=== PATIENT | male | born 1960 | race Caucasian/White ===

== ENCOUNTER 2023-04-18 16:31 | Emergency (ER) | payer BC, SELFPAY ==
[2023-04-18 16:35] VITALS: BP 124/67; PULSE 67; RESP 18; TEMP 37.2; O2SAT 99; BMI 21.1
--- NOTE | 2023-04-18 17:23 | ED_ITS ---
Documented by User: JEAN CARLOS Nicholson 04/18/23 19:24 HPI - General Adult General Chief complaint: Weakness Stated complaint: FLUIDS NEEDED PER [facility] Time Seen by Provider: 04/18/23 16:51 Source: patient Mode of arrival: walk-in Limitations: no limitations History of Present Illness HPI narrative: patient is a 63-year-old male who presents to the emergency department for IV fluids per his [facility] oncologist. Patient is currently being treated for pancreatic cancer with metastasis to the liver. He has had ongoing diarrhea and on calling his oncologist was instructed to come to the Emergency Room for IV fluids. He denies any fevers, upper respiratory symptoms. He has not had any vomiting. He has a port to the left upper chest. He received chemotherapy last week as an infusion and went home with a pump. He should receive this every two weeks. He has chronic pain that is not worse or different today. No urinary symptoms. No medications taken prior to arrival. Related Data Home Medications Medication Instructions Recorded Confirmed acetaminophen 500 mg capsule 1,000 mg PO BID 04/18/23 04/18/23 gabapentin 100 mg capsule 100 mg PO DAILY 04/18/23 04/18/23 insulin aspart U-100 100 unit/mL 1 sliding scale dose subcut 04/18/23 04/18/23 (3 mL) subcutaneous pen (Novolog USEASDIRECTD FlexPen U-100 Insulin aspart) insulin aspart U-100 100 unit/mL 25 unit subcut QPM 04/18/23 04/18/23 (3 mL) subcutaneous pen (Novolog FlexPen U-100 Insulin aspart) [id number] 1 cap PO .COMPLEX 04/18/23 04/18/23 36,000-114,000-180,000 unit capsule,delay rel (Creon) [id number] 2 cap PO TID 04/18/23 04/18/23 36,000-114,000-180,000 unit capsule,delay rel (Creon) melatonin 1 mg tablet 5 mg PO QPM 04/18/23 04/18/23 methylphenidate HCl 5 mg tablet 5 mg PO BID 04/18/23 04/18/23 ondansetron HCl 8 mg tablet 8 mg PO Q8H PRN nausea and vomiting 04/18/23 04/18/23 oxycodone 5 mg tablet 5 mg PO Q6H PRN pain 04/18/23 04/18/23 prochlorperazine maleate 10 mg 10 mg PO Q6H PRN nausea and 04/18/23 04/18/23 tablet vomiting Allergies Allergy/AdvReac Type Severity Reaction Status Date / Time No Known Drug Allergies Allergy Verified 04/18/23 16:40 Review of Systems ROS Constitutional Denies: fever or chills Ears, nose, mouth, and throat Denies: throat pain or neck pain Respiratory Denies: shortness of breath Gastrointestinal Reports: abdominal pain and diarrhea; Denies: vomiting Musculoskeletal Denies: back pain or neck pain Integumentary/Breast Denies: rash Allergic/Immunologic Denies: hives Exam Narrative Exam Narrative: Gen.: Awake, alert, in no distress Head: Normocephalic, atraumatic ENT: Moist mucous membranes Respiratory: No respiratory distress, lungs clear bilaterally; port to the left upper chest Cardio: Regular rate and rhythm Gastrointestinal: Abdomen is soft, nondistended and nontender to palpation Extremities: Moves extremities equally Psych: Normal mood and affect Neuro: No focal neuro deficit Skin: Warm, dry, intact Constitutional Vital Signs, click to edit/add: Last Vital Signs Temp 99.0 F 04/18/23 16:35 Pulse 65 04/18/23 18:19 Resp 18 04/18/23 18:19 BP 137/66 04/18/23 18:19 Pulse Ox 100 04/18/23 18:19 O2 Del Method Room Air 04/18/23 16:35 Course Vital Signs Vital signs: Vital Signs Temperature 99.0 F 04/18/23 16:35 Pulse Rate 67 04/18/23 16:35 Respiratory Rate 18 04/18/23 16:35 Blood Pressure 124/67 04/18/23 16:35 Pulse Oximetry 99 04/18/23 16:35 Oxygen Delivery Method Room Air 04/18/23 16:35 Temperature 99.0 F 04/18/23 16:35 Pulse Rate 65 04/18/23 18:19 Respiratory Rate 18 04/18/23 18:19 Blood Pressure 137/66 04/18/23 18:19 Pulse Oximetry 100 04/18/23 18:19 Oxygen Delivery Method Room Air 04/18/23 16:35 Medical Decision Making MDM Narrative Medical decision making narrative: patient declined the need for any pain medication or nausea medication in the Emergency Room. Labs studies show mild hypokalemia which was given orally in the Emergency Room. He had no episodes of vomiting in the Emergency Room. Abdomen is soft and benign with stable vital signs. Patient has unremarkable lab studies with no evidence of severe dehydration. Reevaluated by attending physician prior to discharge. Followw closely with her oncologist and return to the Emergency Room if symptoms change or worsen. Medical Records Medical records reviewed: Yes I reviewed the patient's medical records Lab Data Lab results reviewed: Yes I reviewed the patient's lab results Labs: Lab Results 04/18/23 04/18/23 Range/Units 17:30 17:41 WBC 4.5 (4.0-11.0) 10^3/uL RBC 3.83 L (4.70-6.10) 10^6/uL Hgb 11.3 L (14.0-18.0) g/dL Hct 33.9 L (42.0-54.0) % MCV 88.5 (80.0-94.0) fL MCH 29.5 (25.9-34.0) pg MCHC 33.3 (29.9-35.2) g/dL RDW 15.2 H (11.0-15.0) % Plt Count 97 L (150-450) 10^3/uL MPV 10.2 (9.5-13.5) fL Neut % (Auto) 58.6 (43.0-75.0) % Lymph % (Auto) 26.2 (20.5-60.0) % Steele % (Auto) 8.3 (1.7-12.0) % Eos % (Auto) 6.0 (0.9-7.0) % Baso % (Auto) 0.9 (0.2-2.0) % Neut # (Auto) 2.6 (1.4-6.5) 10^3/uL Lymph # (Auto) 1.2 (1.2-3.8) 10^3/uL Steele # (Auto) 0.4 (0.3-0.8) 10^3/uL Eos # (Auto) 0.3 (0.0-0.7) 10^3/uL Baso # (Auto) 0.0 (0.0-0.1) 10^3/uL Abs Immat Gran (auto) 0.00 (0.00-0.03) 10^3/uL Imm/Tot Granulo (auto) 0.0 (0.0-0.5) % Sodium 136 (136-145) mmol/L Potassium 3.0 L (3.5-5.1) mmol/L Chloride 107 (98-107) mmol/L Carbon Dioxide 26.0 (21.0-32.0) mmol/L Anion Gap 6.0 BUN 9.0 (7.0-18.0) mg/dL Creatinine 0.47 L (0.70-1.30) mg/dL Est GFR ( Amer) >60 (>=60) Est GFR (Non-Af Amer) >60 (>=60) BUN/Creatinine Ratio 19.1 Glucose 88 (74-106) mg/dL Lactate 0.6 (0.4-2.0) mmol/L Calcium 7.9 L (8.5-10.1) mg/dL Total Bilirubin 0.3 (0.2-1.0) mg/dL AST 24 (15-37) U/L ALT 42 (16-63) U/L Alkaline Phosphatase 180 H (46-116) U/L Total Protein 5.8 L (6.4-8.2) g/dL Albumin 2.9 L (3.4-5.0) g/dL Globulin 2.9 g/dL Albumin/Globulin Ratio 1.0 Discharge Plan Discharge Chief Complaint: Weakness Clinical Impression: Diarrhea, Acute hypokalemia Patient Disposition: Home, Self-Care Time of Disposition Decision: 19:06 Condition: Good Prescriptions / Home Meds: No Action gabapentin 100 mg capsule 100 mg PO DAILY insulin aspart U-100 [Novolog FlexPen U-100 Insulin] 100 unit/mL (3 mL) insulin pen 25 unit SUBCUT QPM Creon 36,000-114,000- 180,000 unit capsule,delayed release(DR/EC) 2 cap PO TID Creon 36,000-114,000- 180,000 unit capsule,delayed release(DR/EC) 1 cap PO .COMPLEX Rx Instructions: 1 cap orally before each snack in between meals; administer with meals and/or snacks methylphenidate HCl 5 mg tablet 5 mg PO BID ondansetron HCl 8 mg tablet 8 mg PO Q8H PRN (Reason: nausea and vomiting) oxycodone 5 mg tablet 5 mg PO Q6H PRN (Reason: pain) prochlorperazine maleate 10 mg tablet 10 mg PO Q6H PRN (Reason: nausea and vomiting) melatonin 1 mg tablet 5 mg PO QPM acetaminophen 500 mg capsule 1,000 mg PO BID insulin aspart U-100 [Novolog FlexPen U-100 Insulin] 100 unit/mL (3 mL) insulin pen 1 sliding scale dose subcut USEASDIRECTD Instructions: Hypokalemia (ED), Chronic Diarrhea (ED) Additional Instructions: Follow up with your oncologist in the next several days Stand Alone Forms: Portal Instructions Referrals: Physician,Non-Staff, MD [Primary Care Provider] - 1 week Discharge Date/Time: 04/18/23 19:42 Documented by User: Ari Mcgraw MD 04/18/23 20:41 HPI - General Adult General Chief complaint: Weakness Stated complaint: FLUIDS NEEDED PER [facility] Time Seen by Provider: 04/18/23 16:51 Related Data Home Medications Medication Instructions Recorded Confirmed acetaminophen 500 mg capsule 1,000 mg PO BID 04/18/23 04/18/23 gabapentin 100 mg capsule 100 mg PO DAILY 04/18/23 04/18/23 insulin aspart U-100 100 unit/mL 1 sliding scale dose subcut 04/18/23 04/18/23 (3 mL) subcutaneous pen (Novolog USEASDIRECTD FlexPen U-100 Insulin aspart) insulin aspart U-100 100 unit/mL 25 unit subcut QPM 04/18/23 04/18/23 (3 mL) subcutaneous pen (Novolog FlexPen U-100 Insulin aspart) [id number] 1 cap PO .COMPLEX 04/18/23 04/18/23 36,000-114,000-180,000 unit capsule,delay rel (Creon) [id number]-[id number] 2 cap PO TID 04/18/23 04/18/23 36,000-114,000-180,000 unit capsule,delay rel (Creon) melatonin 1 mg tablet 5 mg PO QPM 04/18/23 04/18/23 methylphenidate HCl 5 mg tablet 5 mg PO BID 04/18/23 04/18/23 ondansetron HCl 8 mg tablet 8 mg PO Q8H PRN nausea and vomiting 04/18/23 04/18/23 oxycodone 5 mg tablet 5 mg PO Q6H PRN pain 04/18/23 04/18/23 prochlorperazine maleate 10 mg 10 mg PO Q6H PRN nausea and 04/18/23 04/18/23 tablet vomiting Allergies Allergy/AdvReac Type Severity Reaction Status Date / Time No Known Drug Allergies Allergy Verified 04/18/23 16:40 Exam Constitutional Vital Signs, click to edit/add: Last Vital Signs Temp 99.0 F 04/18/23 16:35 Pulse 65 04/18/23 18:19 Resp 18 04/18/23 18:19 BP 137/66 04/18/23 18:19 Pulse Ox 100 04/18/23 18:19 O2 Del Method Room Air 04/18/23 16:35 Course Vital Signs Vital signs: Vital Signs Temperature 99.0 F 04/18/23 16:35 Pulse Rate 67 04/18/23 16:35 Respiratory Rate 18 04/18/23 16:35 Blood Pressure 124/67 04/18/23 16:35 Pulse Oximetry 99 04/18/23 16:35 Oxygen Delivery Method Room Air 04/18/23 16:35 Temperature 99.0 F 04/18/23 16:35 Pulse Rate 65 04/18/23 18:19 Respiratory Rate 18 04/18/23 18:19 Blood Pressure 137/66 04/18/23 18:19 Pulse Oximetry 100 04/18/23 18:19 Oxygen Delivery Method Room Air 04/18/23 16:35 Medical Decision Making MDM Narrative Medical decision making narrative: patient declined the need for any pain medication or nausea medication in the Emergency Room. Labs studies show mild hypokalemia which was given orally Potassium replacement in the Emergency Room. He had no episodes of vomiting in the Emergency Room. Abdomen is soft and benign with stable vital signs. Patient has unremarkable lab studies with no evidence of severe dehydration. Reevaluated by attending physician prior to discharge. Followw closely with her oncologist and return to the Emergency Room if symptoms change or worsen. I, Dr Mcgraw, have reviewed the above progress note and course of action in the ER; agree with the above. I have personally seen and evaluated this patient, gone over history and physical, and discussed disposition and treatment plan with the patient. Lab Data Labs: Lab Results 04/18/23 04/18/23 Range/Units 17:30 17:41 WBC 4.5 (4.0-11.0) 10^3/uL RBC 3.83 L (4.70-6.10) 10^6/uL Hgb 11.3 L (14.0-18.0) g/dL Hct 33.9 L (42.0-54.0) % MCV 88.5 (80.0-94.0) fL MCH 29.5 (25.9-34.0) pg MCHC 33.3 (29.9-35.2) g/dL RDW 15.2 H (11.0-15.0) % Plt Count 97 L (150-450) 10^3/uL MPV 10.2 (9.5-13.5) fL Neut % (Auto) 58.6 (43.0-75.0) % Lymph % (Auto) 26.2 (20.5-60.0) % Steele % (Auto) 8.3 (1.7-12.0) % Eos % (Auto) 6.0 (0.9-7.0) % Baso % (Auto) 0.9 (0.2-2.0) % Neut # (Auto) 2.6 (1.4-6.5) 10^3/uL Lymph # (Auto) 1.2 (1.2-3.8) 10^3/uL Steele # (Auto) 0.4 (0.3-0.8) 10^3/uL Eos # (Auto) 0.3 (0.0-0.7) 10^3/uL Baso # (Auto) 0.0 (0.0-0.1) 10^3/uL Abs Immat Gran (auto) 0.00 (0.00-0.03) 10^3/uL Imm/Tot Granulo (auto) 0.0 (0.0-0.5) % Sodium 136 (136-145) mmol/L Potassium 3.0 L (3.5-5.1) mmol/L Chloride 107 (98-107) mmol/L Carbon Dioxide 26.0 (21.0-32.0) mmol/L Anion Gap 6.0 BUN 9.0 (7.0-18.0) mg/dL Creatinine 0.47 L (0.70-1.30) mg/dL Est GFR ( Amer) >60 (>=60) Est GFR (Non-Af Amer) >60 (>=60) BUN/Creatinine Ratio 19.1 Glucose 88 (74-106) mg/dL Lactate 0.6 (0.4-2.0) mmol/L Calcium 7.9 L (8.5-10.1) mg/dL Total Bilirubin 0.3 (0.2-1.0) mg/dL AST 24 (15-37) U/L ALT 42 (16-63) U/L Alkaline Phosphatase 180 H (46-116) U/L Total Protein 5.8 L (6.4-8.2) g/dL Albumin 2.9 L (3.4-5.0) g/dL Globulin 2.9 g/dL Albumin/Globulin Ratio 1.0 Discharge Plan Discharge Chief Complaint: Weakness Clinical Impression: Diarrhea, Acute hypokalemia Patient Disposition: Home, Self-Care Time of Disposition Decision: 19:06 Condition: Good Prescriptions / Home Meds: No Action gabapentin 100 mg capsule 100 mg PO DAILY insulin aspart U-100 [Novolog FlexPen U-100 Insulin] 100 unit/mL (3 mL) insulin pen 25 unit SUBCUT QPM Creon 36,000-114,000- 180,000 unit capsule,delayed release(DR/EC) 2 cap PO TID Creon 36,000-114,000- 180,000 unit capsule,delayed release(DR/EC) 1 cap PO .COMPLEX Rx Instructions: 1 cap orally before each snack in between meals; administer with meals and/or snacks methylphenidate HCl 5 mg tablet 5 mg PO BID ondansetron HCl 8 mg tablet 8 mg PO Q8H PRN (Reason: nausea and vomiting) oxycodone 5 mg tablet 5 mg PO Q6H PRN (Reason: pain) prochlorperazine maleate 10 mg tablet 10 mg PO Q6H PRN (Reason: nausea and vomiting) melatonin 1 mg tablet 5 mg PO QPM acetaminophen 500 mg capsule 1,000 mg PO BID insulin aspart U-100 [Novolog FlexPen U-100 Insulin] 100 unit/mL (3 mL) insulin pen 1 sliding scale dose subcut USEASDIRECTD Instructions: Hypokalemia (ED), Chronic Diarrhea (ED) Additional Instructions: Follow up with your oncologist in the next several days Stand Alone Forms: Portal Instructions Referrals: Physician,Non-Staff, MD [Primary Care Provider] - 1 week Discharge Date/Time: 04/18/23 19:42
[2023-04-18] MEDS: 0.9 % SODIUM CHLORIDE 1,000 ML 999 ML IV (17:31)
[2023-04-18 17:52] LABS: Basophils Percent Auto 0.9 % (0.2-2.0); Eosinophils Absolute Auto 0.3 10^3/uL (0.0-0.7); Hematocrit 33.9 % (42.0-54.0); Hemoglobin 11.3 g/dL (14.0-18.0); Lymphocytes Absolute Auto 1.2 10^3/uL (1.2-3.8); Lymphocytes Percent Auto 26.2 % (20.5-60.0); Mean Corpuscular HGB Conc 33.3 g/dL (29.9-35.2); Mean Corpuscular Hemoglobin 29.5 pg (25.9-34.0); Mean Corpuscular Volume 88.5 fL (80.0-94.0); Mean Platelet Volume 10.2 fL (9.5-13.5); Monocytes Absolute Auto 0.4 10^3/uL (0.3-0.8); Monocytes Percent Auto 8.3 % (1.7-12.0); Neutrophils Absolute Auto 2.6 10^3/uL (1.4-6.5); Neutrophils Percent Auto 58.6 % (43.0-75.0); Platelet Count 97 10^3/uL (150-450); Red Blood Count 3.83 10^6/uL (4.70-6.10); Red Cell Distribution Width 15.2 % (11.0-15.0); White Blood Count 4.5 10^3/uL (4.0-11.0)
[2023-04-18 17:53] LABS: Alanine Aminotransferase 42 U/L (16-63); Albumin Level 2.9 g/dL (3.4-5.0); Alkaline Phosphatase 180 U/L (46-116); Aspartate Amino Transferase 24 U/L (15-37); BUN Creatinine Ratio 19.1; Bilirubin Total 0.3 mg/dL (0.2-1.0); Calcium 7.9 mg/dL (8.5-10.1); Chloride 107 mmol/L (98-107); Estimated GFR (African America >60 (>=60); Estimated GFR (Non-African Ame >60 (>=60); Globulin 2.9 g/dL; Glucose 88 mg/dL (74-106); Sodium 136 mmol/L (136-145); Total Protein 5.8 g/dL (6.4-8.2)
[2023-04-18 18:02] LABS: Lactate/Lactic Acid 0.6 mmol/L (0.4-2.0)
[2023-04-18 18:19] VITALS: BP 137/66; PULSE 65; RESP 18; O2SAT 100
[2023-04-18] MEDS: POTASSIUM BICARBONATE/CIT 25 MEQ TABLET EFF 50 MEQ PO (19:18)
== END 2023-04-18 19:42 | disposition home or self-care (01) ==
PROVIDERS: Physician Assistant; Emergency Provider Emergency Medicine
DX: E87.6 Hypokalemia (principal); R19.7 Diarrhea, unspecified; C25.9 Malignant neoplasm of pancreas, unspecified; C78.7 Secondary malignant neoplasm of liver and intrahepatic bile duct; Z79.899 Other long term (current) drug therapy; G89.29 Other chronic pain; Z79.4 Long term (current) use of insulin
CPT/HCPCS: 36415; 80053; 83605; 85025; 96360; 96361; 99284